=== PATIENT | male | born 1940 | race Caucasian/White ===

== ENCOUNTER → 2017-07-13 | Outpatient (CLI) | payer MEDICARE, OTHER ==
[~2017-07-13] MED LIST: AMIT10TA13 PO; AMIT50TA3 PO; ASCO100029 PO; ASPI1TAB57 PO; ASPI81TA82 PO; BACL10TA PO; CO Q100C9 PO; COEN400C PO; FISH1000 PO; FOLI200T PO; FOLI800T PO; GLUC500C4 OR; GLUC500T4 PO; LEVO50TA4 PO; MAGN100T2 PO; MAGN250T13 PO; MELO15TA20 PO; METH500T3 PO; MOBI15TA PO; MULT-65 PO; NEXI20CA PO; PRIL20CA PO; SIMV10TA PO; SUMA100T2 PO; SUMA50TA2 PO; TAB-TAB PO; TEMA15 PO; VITA100017 PO; VITA100T65 PO; VITA150T PO; ZOCO40TA PO
[2017-07-13 13:32] LABS: AUTOMATED NEUTROPHIL # 2.4 TH/MM3 (1.8-7.7); BASOPHIL # 0.1 TH/MM3 (0-0.2); BASOPHIL % 1.2 % (0.0-2.0); EOSINOPHIL # 0.2 TH/MM3 (0-0.4); EOSINOPHIL % 4.2 % (0.0-4.0); HEMATOCRIT 42.9 % (39.0-51.0); HEMOGLOBIN 14.1 GM/DL (13.0-17.0); LYMPH % 30.7 % (9.0-44.0); LYMPHOCYTE # 1.4 TH/MM3 (1.0-4.8); MEAN CORPUSCULAR HEMOGLOBIN 29.8 PG (27.0-34.0); MEAN CORPUSCULAR HGB CONC 32.8 % (32.0-36.0); MEAN PLATELET VOLUME 6.9 FL (7.0-11.0); MONO % 12.9 % (0.0-8.0); MONOCYTE # 0.6 TH/MM3 (0-0.9); PLATELET COUNT 232 TH/MM3 (150-450); RED BLOOD COUNT 4.72 MIL/MM3 (4.50-5.90); WHITE BLOOD COUNT 4.7 TH/MM3 (4.0-11.0)
== END ==
LOC: PHPRE 12:38
PROVIDERS: ATTEND Pain Medicine Interventional Pain Medicine
DX: Z01.812 Encounter for preprocedural laboratory examination (principal); M54.5 Low back pain
CPT/HCPCS: 36415; 85025

== ENCOUNTER → 2017-07-20 | Day surgery (SDC) | payer MEDICARE, OTHER ==
[~2017-07-20] VITALS: Ht 167.6 cm; Wt 77.0 kg
[~2017-07-20] MED LIST changes: +ACETAMINOPHEN/HYDROcodone 325 MG/5 MG TAB PO ONE; -AMIT10TA13 PO; -ASPI81TA82 PO; +BUPIVACAINE/EPINEPHRINE 0.25% 50 ML VIAL ONE; +CHLORHEXIDINE GLUCONATE 2 % 1 PACK (2 CLOTHS) TOPICAL PRN; -COEN400C PO; -FOLI200T PO; -GLUC500C4 OR; +LACTATED RINGER'S 1000 ML IV PRN; -LEVO50TA4 PO; -MAGN250T13 PO; +MEPERIDINE HCL 50 MG/ML VIAL IV PRN; +METOPROLOL TARTRATE 25 MG TAB PO PRN; +MIDAZOLAM HCL 2 MG/2 ML VIAL ONE; -MOBI15TA PO; +POVIDONE IODINE 5% (ANTISEPSIS KIT) 4 APPLICATIONS EACH NARE PRN; -PRIL20CA PO; +SODIUM CHLORID 0.9% 500 ML IV PRN; +SODIUM CHLORIDE 0.9% 20 ML VIAL ONE; -SUMA50TA2 PO; -TAB-TAB PO; -TEMA15 PO; -VITA100017 PO; -ZOCO40TA PO; +ceFAZolin 1,000 MG/NS 100 ML IV SCH
--- NOTE | 2017-07-20 13:19 | MP ---
cc: Chanda Berry MD DATE OF OPERATION: 07/20/2017 PROCEDURE PERFORMED: Implantation of [employer] quad electrodes x 4 for cluneal nerve stimulation. PREPROCEDURE DIAGNOSIS: Failed back syndrome with intractable pain. POSTPROCEDURE DIAGNOSIS: Failed back syndrome with intractable pain. PROCEDURE NOTE: An IV was started in the holding area. Consent forms were signed. The surgical site was marked. The patient was given IV antibiotics. Then, he was taken to the operating room, placed in the prone position. All pressure points were checked and padded. He was sedated and monitored by Anesthesia. The skin in the midline of the lumbar region was infiltrated with 0.25% Marcaine containing epinephrine. Then also, the skin in the patient's left flank was infiltrated. Then, an incision was made in the lumbar area and 2 quad electrodes were placed subcutaneously on the right and 2 on the left over the area of the patient's pain. The quad electrodes were anchored to the underlying tissue using a Silastic anchoring device circumferentially tied with two 2-0 Ethibond sutures. Then, an incision was made in the left flank and a tunneling device was used to tunnel the stimulating leads to the left flank where they were connected to distal extension wires by tightening 4 Devin screws for each of the 4 electrodes. Impedance was checked at the bedside and found to be appropriate in all the electrodes. Then, the connection was covered with a Silastic cover secured at both ends with 2-0 Ethibond suture. Then, a final tunnel was made from the left flank incision further distally on the left flank. The stimulating leads and the distal extension wires were coiled in the left flank incision. Then, the lumbar incision and the left flank incision were closed using 3-0 Monocryl in the subcuticular tissue and 3-0 nylon on the skin. The incisions were covered with sterile adhesive dressings and the patient was taken to the recovery room with stable vital signs, neurologically intact. MD KRISTY Ly/WILD , 01:05 PM , 01:18 PM
[2017-07-20 15:20] VITALS: BP 120/65; PULSE 62; RESP 16; TEMP 98.1; O2SAT 100
== END | disposition home or self-care (01) ==
LOC: PHSDC 08:53
PROVIDERS: ATTEND Pain Medicine Interventional Pain Medicine
DX: M96.1 Postlaminectomy syndrome, not elsewhere classified (principal); R51 Headache; K21.9 Gastro-esophageal reflux disease without esophagitis
CPT/HCPCS: 01936; 63650; C1778; J0690; J2250; J7120

== ENCOUNTER → 2017-07-30 | Day surgery (SDC) | payer MEDICARE, OTHER ==
[~2017-07-30] VITALS: Ht 167.6 cm; Wt 77.0 kg
[~2017-07-30] MED LIST changes: -ACETAMINOPHEN/HYDROcodone 325 MG/5 MG TAB PO ONE; +BUPIVACAINE HCL PF 0.25% 30 ML VIAL ONE; -BUPIVACAINE/EPINEPHRINE 0.25% 50 ML VIAL ONE; +BUPIVACAINE/EPINEPHRINE 0.5% PF 30 ML VIAL ONE; -MEPERIDINE HCL 50 MG/ML VIAL IV PRN; -MIDAZOLAM HCL 2 MG/2 ML VIAL ONE; +NEOMYCIN/POLYMYXIN 1 ML G.U. IRRIGANT ONE; -SODIUM CHLORIDE 0.9% 20 ML VIAL ONE
--- NOTE | 2017-07-30 13:48 | MP ---
cc: Chanda Berry MD DATE OF OPERATION: 07/30/2017 DATE OF PROCEDURE: 07/30/2017 PROCEDURE PERFORMED: Removal of peripheral nerve stimulating electrodes x 4. PREPROCEDURE DIAGNOSIS: Failed back syndrome with intractable pain. POSTPROCEDURE DIAGNOSIS: Failed back syndrome with intractable pain. DESCRIPTION OF PROCEDURE: An IV was started in the holding area. The patient was given IV antibiotics. The consent forms were signed. The surgical site was marked. The patient was taken to the operating room, placed in the prone position. His back was prepped with Betadine and draped with sterile drapes. The midline incision and the flank incision were infiltrated with 0.5% Marcaine containing epinephrine. Each incision then was reopened by cutting the sutures. The stimulating electrodes were freed from their anchored position by cutting the 2-0 Ethibond sutures which held them in place. Then, the stimulating leads and the distal extension wires were all removed intact. The flank incision in the lumbar incision were irrigated with Betadine. Closure took place with 3-0 Monocryl in a subcuticular tissue and 3-0 nylon on the skin. The incisions were covered with sterile adhesive dressings, and the patient was taken to the recovery room with stable vital signs, neurologically intact. MD KRISTY Ly/LITZY , 01:36 PM , 01:46 PM
[2017-07-30 14:40] VITALS: BP 133/76; PULSE 58; RESP 16; TEMP 97.9; O2SAT 99
== END | disposition home or self-care (01) ==
LOC: PHSDC 10:01
PROVIDERS: ATTEND Pain Medicine Interventional Pain Medicine
DX: M96.1 Postlaminectomy syndrome, not elsewhere classified (principal); E78.5 Hyperlipidemia, unspecified
CPT/HCPCS: 00300; 64585; J0690; J7120